=== PATIENT | female | born 1995 | race Caucasian/White ===

== ENCOUNTER → 2020-11-02 | Outpatient (CLI) | payer OTHER ==
[~2020-11-02] MED LIST: COLACE 100MG C100 MG PO; LODINE CAP 300300 MG PO; NORFLEX 100 MG100 MG PO; PREDNISONE 50 M50 MG PO
== END ==
LOC: KOH-I 10:07
DX: M25.561 Pain in right knee (principal)
CPT/HCPCS: 73721

== ENCOUNTER → 2020-11-13 | Outpatient (CLI) | payer OTHER | LOC: HEART 5 09:01 | DX: J45.909 Unspecified asthma, uncomplicated (principal) | CPT/HCPCS: 94060 ==

== ENCOUNTER → 2021-04-20 | Outpatient (CLI) | payer OTHER | LOC: RAD 09:46 | DX: J40 Bronchitis, not specified as acute or chronic (principal) | CPT/HCPCS: 71046 ==

== ENCOUNTER → 2021-10-13 | Outpatient (CLI) | payer OTHER | LOC: RAD 13:15 | DX: R06.02 Shortness of breath (principal) | CPT/HCPCS: 71046 ==

== ENCOUNTER → 2021-12-17 | Outpatient (CLI) | payer OTHER | LOC: RAD 15:37 | DX: R06.02 Shortness of breath (principal) | CPT/HCPCS: 71046 ==